=== PATIENT | female | born 2000 | race Caucasian/White ===

== ENCOUNTER 2022-05-25 10:03 | Emergency (ER) | payer SELFPAY ==
[~2022-05-25] VITALS: Ht 157.5 cm; Wt 100.0 kg
[2022-05-25 13:33] VITALS: BP 113/78
== END 2022-05-25 13:33 | disposition home or self-care (01) | DRG 866 ==
LOC: ED 10:03
DX: B34.9 Viral infection, unspecified (principal); Z20.822 Contact with and (suspected) exposure to COVID-19